=== PATIENT | female | born 1975 | race Caucasian/White ===

== ENCOUNTER → 2016-04-21 | Outpatient (CLI) | payer OTHER ==
[~2016-04-21] MED LIST: BACTRIM,SEPT1 TABLET PO; BUSPAR10 MG PO; Bactrim,Septra DS 80 PO; CELEBREX200 MG PO; CITALOPRAM HBR20 M1 PO; IBUPROFEN200 M1 PO; KLONOPIN0.25 MG PO; LEXAPRO20 MG PO; NEURONTIN400 MG PO; ULTRAM50 MG PO; VICODIN 5-3001 EACH PO; Vicodin,Norco 5/325 PO; Wellbutrin PO; celeXA PO
== END | disposition home or self-care (01) ==
LOC: CDC 10:14
DX: Z01.810 Encounter for preprocedural cardiovascular examination (principal); R00.1 Bradycardia, unspecified; M47.12 Other spondylosis with myelopathy, cervical region; M48.02 Spinal stenosis, cervical region; M50.20 Other cervical disc displacement, unspecified cervical region
CPT/HCPCS: 93000

== ENCOUNTER 2016-04-26 05:52 | Day surgery (SDC) | payer OTHER ==
[~2016-04-26] VITALS: Ht 167.6 cm; Wt 86.2 kg
[2016-04-26 06:17] VITALS: BP 126/76
[2016-04-26 08:16] LABS: METH RESISTANT S AUREUS PCR POSITIVE (NEGATIVE)
[2016-04-26 08:17] LABS: PROBE CHECK PASS
[2016-04-26 12:26] VITALS: BP 131/60
[2016-04-26 13:35] VITALS: BP 128/73
[2016-04-26 14:55] VITALS: BP 140/73
[2016-04-26 15:35] VITALS: BP 149/82
== END 2016-04-26 16:00 | disposition home or self-care (01) ==
LOC: SDC 05:52 → 2SOUTH 10:07 → SDC 15:26 → 2SOUTH 16:00
PROVIDERS: Neurological Surgery
DX: M47.12 Other spondylosis with myelopathy, cervical region (principal); M48.02 Spinal stenosis, cervical region; M50.221 Other cervical disc displacement at C4-C5 level; M50.222 Other cervical disc displacement at C5-C6 level; M50.223 Other cervical disc displacement at C6-C7 level; G95.89 Other specified diseases of spinal cord; F10.20 Alcohol dependence, uncomplicated; F17.200 Nicotine dependence, unspecified, uncomplicated; F32.9 Major depressive disorder, single episode, unspecified; F41.9 Anxiety disorder, unspecified; Z86.14 Personal history of Methicillin resistant Staphylococcus aureus infection; Z98.84 Bariatric surgery status; Z91.81 History of falling
CPT/HCPCS: 72040; 76000; 87641; C1713; G0378; J0690; J1100; J1170; J2250; J2405; J2710; J3010

== ENCOUNTER 2016-04-29 12:24 | Emergency (ER) | payer OTHER ==
[~2016-04-29] VITALS: Ht 167.6 cm; Wt 90.6 kg
[2016-04-29 13:07] LABS: HEMATOCRIT 35.1 % (36.0-46.0); MCH 27.1 PG (29.0-34.0); MCHC 31.6 G/DL (30.0-36.0); MCV 85.8 FL (83-99); MEAN PLAT.VOLUME 9.8 uM^3 (9.5-12.4); PLATELET COUNT 397 K/uL (156-360); RBC DIS.WIDTH-CV 17.3 % (11.8-14.6); RED BLOOD COUNT 4.09 M/uL (3.80-5.20); WHITE BLOOD COUNT 7.2 K/uL (4.1-10.2)
[2016-04-29] MEDS ORDERED: GABAPENTIN800 MG PO (13:09)
[2016-04-29 13:11] LABS: EOSINOPHIL (%) 4.3 % (0-5); EOSINOPHIL COUNT 0.3 K/uL (0-0.3); IMMATURE GRANULOCYTE (%) 0.3 % (0.0-0.7); IMMATURE GRANULOCYTE COUNT 0.2 K/uL; LYMPHOCYTE COUNT 1.3 K/uL (1.0-2.8); MONOCYTE (%) 11.1 % (3-12); MONOCYTE COUNT 0.8 K/uL (0-0.8); NEUTROPHIL (%) 65.7 % (45-76); NEUTROPHIL COUNT 4.7 K/uL (1.8-6.4)
[2016-04-29] MEDS ORDERED: BUPROPION XL300 MG PO (13:11)
[2016-04-29] MEDS ORDERED: BUSPAR30 MG PO (13:11)
[2016-04-29] MEDS ORDERED: HYDROCODON-ACE1 EAC8 PO (13:12)
[2016-04-29] MEDS ORDERED: PROMETHAZINE HC25 M1 PO (13:12)
[2016-04-29] MEDS ORDERED: CHLORZOXAZONE500 MG PO (13:14)
[2016-04-29 13:18] LABS: CHLORIDE 108 mEq/L (99-109); POTASSIUM 4.4 mEq/L (3.7-5.4); SODIUM 138 mEq/L (136-147)
[2016-04-29 13:20] LABS: GLUCOSE 71 mg/dL (70-99)
[2016-04-29 13:22] LABS: ANION GAP 10 MEQ/L (2-14); TOTAL BILIRUBIN 0.5 mg/dL (0.0-1.0)
[2016-04-29 13:24] LABS: ALKALINE PHOSPHATASE 119 IU/L (3-129); GFR ESTIMATE (CALCULATED) > 59 mL/min/
[2016-04-29 13:25] LABS: UREA NITROGEN (BUN) 6 mg/dL (9-23)
[2016-04-29] MEDS ORDERED: LORTAB 5-325 M1 EACH PO (15:09)
[2016-04-29] MEDS ORDERED: KEFLEX500 MG PO (15:09)
[2016-04-29] MEDS ORDERED: MEDROL DOSEPAK4 MG PO (15:09)
[2016-04-29 16:47] VITALS: BP 115/84
== END 2016-04-29 16:50 | disposition home or self-care (01) ==
LOC: EME 12:24
PROVIDERS: Emergency Medicine
DX: L03.221 Cellulitis of neck (principal); G62.9 Polyneuropathy, unspecified; E11.9 Type 2 diabetes mellitus without complications; F17.200 Nicotine dependence, unspecified, uncomplicated; Z71.6 Tobacco abuse counseling; Z98.890 Other specified postprocedural states; Z86.14 Personal history of Methicillin resistant Staphylococcus aureus infection
CPT/HCPCS: 70491; 80053; 85025; 99281; 99285; J0690; J1100; J1170; J1885; J2405; J7050

== ENCOUNTER 2016-09-21 08:36 | Emergency (ER) | payer OTHER ==
[~2016-09-21] VITALS: Ht 170.2 cm; Wt 86.4 kg
[~2016-09-21 08:36] MED LIST changes: +BUPROPION XL300 MG PO; +BUSPAR30 MG PO; +CHLORZOXAZONE500 MG PO; +GABAPENTIN800 MG PO; +HYDROCODON-ACE1 EAC8 PO; +KEFLEX500 MG PO; +LORTAB 5-325 M1 EACH PO; +MEDROL DOSEPAK4 MG PO; +PROMETHAZINE HC25 M1 PO
[2016-09-21 09:34] LABS: HEMATOCRIT 38.7 % (36.0-46.0); MCH 26.6 PG (29.0-34.0); MCHC 33.1 G/DL (30.0-36.0); MCV 80.5 FL (83-99); MEAN PLAT.VOLUME 9.1 uM^3 (9.5-12.4); PLATELET COUNT 500 K/uL (156-360); RBC DIS.WIDTH-CV 14.9 % (11.8-14.6); RBC DIS.WIDTH-SD 43.4 % (39-53); RED BLOOD COUNT 4.81 M/uL (3.80-5.20); WHITE BLOOD COUNT 5.8 K/uL (4.1-10.2)
[2016-09-21 09:48] LABS: CHLORIDE 100 mEq/L (99-109); POTASSIUM 3.7 mEq/L (3.7-5.4); SODIUM 138 mEq/L (136-147)
[2016-09-21 09:51] LABS: GLUCOSE 94 mg/dL (70-99)
[2016-09-21 09:52] LABS: ANION GAP 18 MEQ/L (2-14)
[2016-09-21 09:53] LABS: TOTAL BILIRUBIN 0.6 mg/dL (0.0-1.0)
[2016-09-21 09:54] LABS: ALKALINE PHOSPHATASE 162 IU/L (3-129); SERUM ETHYL ALCOHOL 174 mg/dL
[2016-09-21 09:55] LABS: GFR ESTIMATE (CALCULATED) > 59 mL/min/; TROP-I INTERPRETATION NEGATIVE; TROPONIN-I < 0.01 ng/mL (0.0-0.30)
[2016-09-21 09:56] LABS: UREA NITROGEN (BUN) 6 mg/dL (9-23)
[2016-09-21 10:00] LABS: AMPHETAMINE NEGATIVE (500 ng/mL); BARBITURATES NEGATIVE (200 ng/mL); BENZODIAZEPINES NEGATIVE (150 ng/mL); COCAINE PRESUMPTIVE POSITIVE (150 ng/mL); INTERNAL CONTROLS VALID? YES; METHADONE NEGATIVE (200 ng/mL); METHAMPHETAMINE NEGATIVE (500 ng/mL); OPIATES (MORPHINE) NEGATIVE (100 ng/mL); OXYCODONE NEGATIVE (100 ng/mL); PHENCYCLIDINE NEGATIVE (25 ng/mL); PROPOXYPHENE NEGATIVE (300 ng/mL); THC CANNABINOIDS NEGATIVE (50 ng/mL); TRICYCLIC ANTIDEPRESSANTS NEGATIVE (300 ng/mL)
[2016-09-21 10:01] LABS: ADD MEDTOX COMMENT Y
[2016-09-21] MEDS ORDERED: ATARAX,VISTARIL25 MG PO (12:12)
[2016-09-21 12:36] VITALS: BP 154/87
== END 2016-09-21 12:37 | disposition home or self-care (01) ==
LOC: EME 08:36
PROVIDERS: Nurse Practitioner Family
DX: F10.10 Alcohol abuse, uncomplicated (principal); F14.10 Cocaine abuse, uncomplicated; R20.0 Anesthesia of skin; R06.02 Shortness of breath; F41.9 Anxiety disorder, unspecified; R74.8 Abnormal levels of other serum enzymes; S00.11XA Contusion of right eyelid and periocular area, initial encounter; W19.XXXA Unspecified fall, initial encounter; Y90.6 Blood alcohol level of 120-199 mg/100 ml; F17.200 Nicotine dependence, unspecified, uncomplicated
CPT/HCPCS: 70150; 80053; 84484; 84999; 85027; 93005; 99281; 99285; G0480; J2060; J7040

== ENCOUNTER 2016-12-06 09:14 | Emergency (ER) | payer OTHER ==
[~2016-12-06] VITALS: Ht 170.2 cm; Wt 56.9 kg
[~2016-12-06 09:14] MED LIST changes: +ATARAX,VISTARIL25 MG PO
[2016-12-06 09:53] LABS: EOSINOPHIL (%) 1.8 % (0-5); EOSINOPHIL COUNT 0.1 K/uL (0-0.3); HEMATOCRIT 37.5 % (36.0-46.0); IMMATURE GRANULOCYTE (%) 0.4 % (0.0-0.7); INSTRUMENT ABS NEUTROPHIL CT 1.5 K/uL; LYMPHOCYTE COUNT 0.8 K/uL (1.0-2.8); MCH 27.8 PG (29.0-34.0); MCHC 32.3 G/DL (30.0-36.0); MEAN PLAT.VOLUME 9.7 uM^3 (9.5-12.4); MONOCYTE COUNT 0.3 K/uL (0-0.8); NEUTROPHIL (%) 54.4 % (45-76); NEUTROPHIL COUNT 1.5 K/uL (1.8-6.4); PLATELET COUNT 157 K/uL (156-360); RBC DIS.WIDTH-SD 61.6 % (39-53); RED BLOOD COUNT 4.36 M/uL (3.80-5.20); WHITE BLOOD COUNT 2.7 K/uL (4.1-10.2)
[2016-12-06 10:04] LABS: CHLORIDE 101 mEq/L (99-109); SODIUM 138 mEq/L (136-147)
[2016-12-06 10:06] LABS: GLUCOSE 72 mg/dL (70-99)
[2016-12-06 10:07] LABS: ANION GAP 13 MEQ/L (2-14)
[2016-12-06 10:09] LABS: SERUM ETHYL ALCOHOL 223 mg/dL
[2016-12-06 10:10] LABS: GFR ESTIMATE (CALCULATED) > 59 mL/min/; UREA NITROGEN (BUN) 6 mg/dL (9-23)
[2016-12-06 14:06] LABS: ADD MIUA? YES; BILIRUBIN NEGATIVE; BLOOD LARGE; GLUCOSE (STRIP) NEGATIVE; KETONES 20; LEUKOCYTES TRACE; NITRITE NEGATIVE; PROTEIN (STRIP) 100
[2016-12-06 14:07] LABS: COLOR RED ((YELLOW))
[2016-12-06 14:18] LABS: RED BLOOD CELLS TNTC /HPF (0-5)
[2016-12-06 14:23] LABS: AMPHETAMINE NEGATIVE (500 ng/mL); BARBITURATES NEGATIVE (200 ng/mL); BENZODIAZEPINES PRESUMPTIVE POSITIVE (150 ng/mL); COCAINE NEGATIVE (150 ng/mL); INTERNAL CONTROLS VALID? YES; METHADONE NEGATIVE (200 ng/mL); METHAMPHETAMINE NEGATIVE (500 ng/mL); OPIATES (MORPHINE) NEGATIVE (100 ng/mL); OXYCODONE NEGATIVE (100 ng/mL); PHENCYCLIDINE NEGATIVE (25 ng/mL); PROPOXYPHENE NEGATIVE (300 ng/mL); THC CANNABINOIDS NEGATIVE (50 ng/mL); TRICYCLIC ANTIDEPRESSANTS NEGATIVE (300 ng/mL)
[2016-12-06 14:24] LABS: ADD MEDTOX COMMENT Y
[2016-12-06 14:56] LABS: BENZODIAZEPINES QUANT VALUE 0 NG/ML; BENZODIAZEPINES, URINE SCREEN Negative (200 ng/mL)
[2016-12-06] MEDS ORDERED: ATIVAN1 MG PO (18:25)
[2016-12-06 19:24] VITALS: BP 120/70
== END 2016-12-06 19:25 | disposition home or self-care (01) ==
LOC: EME 09:14
PROVIDERS: Emergency Medicine
DX: F10.20 Alcohol dependence, uncomplicated (principal); F32.9 Major depressive disorder, single episode, unspecified; E11.9 Type 2 diabetes mellitus without complications; F17.200 Nicotine dependence, unspecified, uncomplicated; Z98.84 Bariatric surgery status
CPT/HCPCS: 80048; 81003; 84999; 85025; 90839; 99281; 99283; G0480; J2060